=== PATIENT | male | born 2000 | race Caucasian/White ===

== ENCOUNTER 2024-10-20 15:33 | Emergency (ER) | payer OTHER, SELFPAY ==
[2024-10-20 15:52] VITALS: BP 151/88; PULSE 81; RESP 14; TEMP 37.1; O2SAT 97
--- NOTE | 2024-10-20 16:28 | ED_ITS ---
HPI - Anxiety <Jaclyn Crowder PA-C - Last Filed: 10/20/24 20:01> General Chief Complaint: Anxiety Stated Complaint: anxiety Time Seen by Provider: 10/20/24 16:28 Source: patient Mode of arrival: Ambulatory History of Present Illness HPI narrative: Darryn Alfaro is a very pleasant 23-year-old male who presents to the emergency department for worsening anxiety since the beginning of September. Patient states without a specific trigger, his underlying anxiety has been worse since September. Today he had an acute episode of anxiety which he called 911 for. They evaluated him and his vital signs were reassuring as with the patient did not seek medical care. Went to work [employer] however he started to feel very anxious again which prompted him to go to the walk-in clinic, he was then sent to the ER for further evaluation. He is with his mother who contributes to the history and he has a good relationship with. Describes feeling anxious and clammy which has improved significantly but he still has an underlying feeling of anxiety. He denies feeling sick or any pain at this time. No drug use. No depression thoughts of self-harm or suicidal or homicidal ideations. He is never talked to a doctor about his anxiety before. He does not currently have a primary care doctor. Related Data Previous Rx's Medication Instructions Recorded hydroxyzine HCl 25 mg tablet 25 mg PO TID PRN anxiety #20 tabs 10/20/24 Allergies Allergy/AdvReac Type Severity Reaction Status Date / Time No Known Drug Allergies Allergy Unverified 05/07/18 08:50 Review of Systems <Jaclyn Crowder PA-C - Last Filed: 10/20/24 20:01> Review of Systems ROS Unobtainable: All systems reviewed & are unremarkable except as noted in HPI and below Patient History <Jaclyn Crowder PA-C - Last Filed: 10/20/24 20:01> Social History Smoking Status: Never smoker Smoking Status: Never smoker Exam <Jaclyn Crowder PA-C - Last Filed: 10/20/24 20:01> Narrative Exam Narrative: GENERAL: 23 year old patient appears stated age. Obese patient, in no acute distress. HEAD: Atraumatic. Normocephalic. EYES: PERRL. Extraocular motions intact. No scleral icterus. No injection or drainage. ENT: Nose without bleeding, purulent drainage. Throat without erythema, tonsillar hypertrophy or exudate. Airway patent. NECK: Trachea midline. Cervical ROM intact. CARDIOVASCULAR: Regular rate and rhythm. RESPIRATORY: ?Nonlabored respirations. ?Speaking in clear, full sentences. ?Clear to auscultation. Breath sounds equal bilaterally. No wheezes, rales, or rhonchi. ? GASTROINTESTINAL: Abdomen soft, non-tender, nondistended. EXTREMITIES: No edema or joint tenderness. BACK: Nontender without deformity or crepitance. No flank tenderness. NEURO: AOx3. ?Clear speech. ?Moves all 4 extremities appropriately. Good insight and judgment. Normal mood. SKIN: No rash or erythema of visible areas Initial Vital Signs Initial Vital Signs: Vital Signs Temperature 98.7 F 10/20/24 15:52 Pulse Rate 81 10/20/24 15:52 Respiratory Rate 14 10/20/24 15:52 Blood Pressure 151/88 H 10/20/24 15:52 Pulse Oximetry 97 10/20/24 15:52 Oxygen Delivery Method Room Air 10/20/24 15:52 <Anrdea Maya MD - Last Filed: 10/29/24 13:00> Initial Vital Signs Initial Vital Signs: Vital Signs Temperature 98.7 F 10/20/24 15:52 Pulse Rate 81 10/20/24 15:52 Respiratory Rate 14 10/20/24 15:52 Blood Pressure 151/88 H 10/20/24 15:52 Pulse Oximetry 97 10/20/24 15:52 Oxygen Delivery Method Room Air 10/20/24 15:52 Course <Jaclyn Crowder PA-C - Last Filed: 10/20/24 20:01> Orders Ordered: Discontinued Medications Hydroxyzine HCl (Hydroxyzine Hcl 25 Mg Tablet) 25 mg PO NOW ONE Stop: 10/20/24 17:13 Last Admin: 10/20/24 17:36 Dose: 25 mg Documented By: MARIA C Vital Signs Vital signs: Vital Signs - 8 hr 10/20/24 15:52 10/20/24 18:03 Temperature 98.7 F 97.6 F Pulse Rate 81 79 Respiratory Rate 14 20 Blood Pressure 151/88 H 148/88 H Pulse Oximetry 97 100 Oxygen Delivery Method Room Air Room Air <Andrea Maya MD - Last Filed: 10/29/24 13:00> Orders Ordered: Discontinued Medications Hydroxyzine HCl (Hydroxyzine Hcl 25 Mg Tablet) 25 mg PO NOW ONE Stop: 10/20/24 17:13 Last Admin: 10/20/24 17:36 Dose: 25 mg Documented By: MARIA C Vital Signs Vital signs: Vital Signs - 8 hr 10/20/24 15:52 10/20/24 18:03 Temperature 98.7 F 97.6 F Pulse Rate 81 79 Respiratory Rate 14 20 Blood Pressure 151/88 H 148/88 H Pulse Oximetry 97 100 Oxygen Delivery Method Room Air Room Air MDM - Anxiety <Jaclyn Crowder PA-C - Last Filed: 10/20/24 20:01> HECTOR Narrative Medical decision making narrative: 23-year-old male who presents to the emergency department for worsening anxiety since the beginning of September. Patient states without a specific trigger, his underlying anxiety has been worse since September. Differential diagnosis includes but is not limited to generalized anxiety disorder, anxiety, panic attack, etc. On exam the patient is in no acute distress, nontoxic appearing, vital signs within normal limits except for mildly elevated blood pressure 151/88. At this time patient is feeling much better. We had an extensive discussion about his anxiety and the importance of following with the primary care doctor to possibly start preventative therapy or cognitive behavioral therapy. Patient denies SI/HI. He has good insight and judgment. We discussed trialing hydroxyzine which he is agreeable to. We will give 1st dose in the ER. Patient verbalized understanding of all information and is stable to go home. Feels safe at home with his mom. All questions answered. Stable for discharge. Discharge Plan Departure Patient Disposition: Home Clinical Impression: Anxiety Instructions: DI for Anxiety -- Adult Activity Restrictions/Additional Instructions: Dear Darryn, Today you were evaluated for anxiety-related symptoms. Your physical exam and vital signs are very reassuring. I have prescribed you a medication called hydroxyzine if needed for acute anxiety. Very important to follow up with the primary care doctor to discuss possible further management of anxiety with the therapist wrist preventative medications. Please return to the ER if you have any concerns. Please follow up with your primary care doctor within the next 2-3 days for ER follow-up. (If you do not have a PCP you can call [phone]. ?to schedule an appointment with an [facility] Primary Care Provider) IF YOU DEVELOP ANY NEW OR WORSENING SYMPTOMS, RETURN TO THE ER! Please read the attached instructions, they highlight more specific treatments and interventions for you at home. Thank you for letting me participate in your care, Jaclyn Crowder PA-C Prescriptions: New hydroxyzine HCl 25 mg tablet 25 mg PO TID PRN (Reason: anxiety) Qty: 20 0RF Referrals: Miscellaneous,Doctor, [Primary Care Provider] - Stand Alone Forms: Patient Portal/API/Survey ED Sign-out <Andrea Maya MD - Last Filed: 10/29/24 13:00> Cosign ED Attending Cosignature Attestation: I was immediately available in the department for consultation. ?This documentation has been reviewed and I agree with assessment and plan. Supervised by Andrea Maya MD
[2024-10-20] MEDS: hydrOXYzine HCL 25 MG TABLET PO (17:36)
[2024-10-20 18:03] VITALS: BP 148/88; PULSE 79; RESP 20; TEMP 36.4; O2SAT 100
== END 2024-10-20 18:03 | disposition home or self-care (01) ==
PROVIDERS: Emergency Provider Physician Assistant; Family Provider Nurse Practitioner Family
DX: F41.9 Anxiety disorder, unspecified (principal)
CPT/HCPCS: 99283; A9270